=== PATIENT | female | born 1945 | race Caucasian/White ===

== ENCOUNTER → 2016-12-23 | Outpatient (CLI) | payer OTHER ==
[~2016-12-23] MED LIST: ALLERPLEX; ASPIRIN EC325 M1 PO; ATIVAN1 MG PO; FISH OIL 1,001000 M1 PO; IMMUPLEX; LOVASTAT20 PO; LOVASTAT40 PO; PROLAMINE IODINE; ZYPAN; [UNRECOGNIZED DRUG - OTHER]; [UNRECOGNIZED DRUG - OTHER]
== END ==
LOC: CAT 10:01
DX: Z13.6 Encounter for screening for cardiovascular disorders (principal)